=== PATIENT | male | born 1995 | race Caucasian/White ===

== ENCOUNTER 2020-04-27 16:13 | Emergency (ER) | payer BC, SELFPAY ==
[2020-04-27 16:21] VITALS: BP 138/82; PULSE 107; RESP 18; TEMP 37.3; O2SAT 99
--- NOTE | 2020-04-27 17:03 | ED.DENTAL ---
HPI - Dental/Oral General Chief complaint: Dental/Oral Stated complaint: tooth pain Time Seen by Provider: 04/27/20 16:31 Source: patient Mode of arrival: ambulatory Limitations: no limitations History of Present Illness HPI Narrative: Patient presents emergency department for toothache x4 days. Reports swelling in the area. He has been taking ibuprofen with little relief. Denies fever or erythema. Location: Tooth # (17) Related Data Allergies Allergy/AdvReac Type Severity Reaction Status Date / Time No Known Allergies Allergy Mild Verified 04/27/20 17:04 Review of Systems Review of Systems: Narrative: CONSTITUTIONAL: Denies fever ENT: Reports dentalgia All systems reviewed & are unremarkable except as noted in HPI and below PMFSH Past Medical History Medical History (Updated 04/27/20 @ 17:17 by Josefina Peoples PA-C) No active medical problems Social History Social History (Updated 04/27/20 @ 17:15 by Josefina Peoples PA-C) Substance use: never Gender identity (if verbalized by the patient): Male Exam Narrative: Exam Narrative: GENERAL: Well-appearing, well-nourished, and in no acute distress. HEAD: Normocephalic, atraumatic. EYES: EOMI. ENT: Mucous membranes moist. Oropharynx without tonsillar hypertrophy, exudate or other lesions. Tooth #17 tender to palpation, no surrounding erythema or edema to suggest abscess. No trismus NECK: Supple. No adenopathy or masses EXTREMITIES: Normal range of motion. No edema. SKIN: Warm, dry, no rash. NEURO: No focal deficits. Alert and oriented x3. PSYCH: Normal mood and affect Course Vital Signs Vital signs: Vital Signs Temperature 99.2 F 04/27/20 16:21 Pulse Rate 107 H 04/27/20 16:21 Respiratory Rate 18 04/27/20 16:21 Blood Pressure 138/82 04/27/20 16:21 Pulse Oximetry 99 04/27/20 16:21 Temperature 99.2 F 04/27/20 16:21 Pulse Rate 107 H 04/27/20 16:21 Respiratory Rate 18 04/27/20 16:21 Blood Pressure 138/82 04/27/20 16:21 Pulse Oximetry 99 04/27/20 16:21 MDM - Dental/Oral MDM Narrative Medical decision making narrative: Patient presents the emergency department for toothache x4 days. He is afebrile and nontoxic-appearing. Tooth #17 is tender palpation without surrounding erythema or edema to suggest abscess. Patient will be started on oral antibiotics. He is to follow-up with a dentist. He was given warnings to return to the ER Critical Care Time Critical Care Time Critical Care Time: No Discharge Plan Discharge Clinical Impression: Toothache Patient Disposition: Home, Self-Care Condition: Stable Instructions: Antibiotic Form, Toothache (ED) Additional Instructions: Return to the Emergency Department if you experience fever >101, increasing swelling and redness of your tooth, or any other symptoms that are concerning to you Take antibiotic as prescribed. Tylenol or Ibuprofen as needed for pain. You can apply a dab of clove oil to a Qtip and apply to the tooth to help numb the area Follow up with dentist. Dr. Tevin Maxwell, [facility] Prescriptions: New amoxicillin-pot clavulanate 875-125 mg tablet 1 tablet PO Q12H 7 Days Qty: 14 RF: 0 Follow-up/Referrals: Jenna,Durga Ramirez MD [Primary Care Provider] -
== END 2020-04-27 17:45 | disposition home or self-care (01) ==
PROVIDERS: Emergency Provider Emergency Medicine; PCP Family Medicine
DX: K08.89 Other specified disorders of teeth and supporting structures (principal)
CPT/HCPCS: 99283